=== PATIENT | male | born 2000 | race Caucasian/White ===

== ENCOUNTER 2021-01-03 23:01 | Emergency (ER) | payer OTHER, MEDICAID ==
[2021-01-03] MEDS ORDERED: Ibuprofen 800 MG TAB ONE (23:36)
== END 2021-01-04 00:01 | disposition home or self-care (01) ==
LOC: ERS 23:01
DX: S90.31XA Contusion of right foot, initial encounter (principal); F17.210 Nicotine dependence, cigarettes, uncomplicated; V29.9XXA Motorcycle rider (driver) (passenger) injured in unspecified traffic accident, initial encounter